=== PATIENT | male | born 1975 ===

== ENCOUNTER 2017-07-05 15:14 | Emergency (ER) | payer SELFPAY ==
[2017-07-05 15:19] VITALS: TEMP 98.7
[2017-07-05] MEDS ORDERED: Lidocaine 2% w Epi 1:100,000 Inj IJ STA (15:52)
[2017-07-05] MEDS ORDERED: Lidocaine 2% w Epi 1:100,000 Inj IJ ONE (16:03)
--- NOTE | 2017-07-05 16:18 | C.PDOC ---
History Of Present Illness 42 yr old male presents to the ER stating while at work he lost his balance, sustaining a laceration to the dorsal aspect of the left forearm by an electric saw. Patient states he can see the muscle but denies any numbness or weakness to the area. Patient denies LOC, chest pain, SOB, nausea, vomiting or back pain. Time Seen by Provider: 07/05/17 15:25 Chief Complaint (Nursing): Abnormal Skin Integrity History Per: Patient History/Exam Limitations: no limitations Onset/Duration Of Symptoms: Sudden Onset ([employer]) Current Symptoms Are (Timing): Still Present Past Medical History Reviewed: Historical Data, Nursing Documentation, Vital Signs Vital Signs: Last Vital Signs Temp 98.7 F 07/05/17 15:17 Pulse 64 07/05/17 17:16 Resp 18 07/05/17 17:16 BP 116/73 07/05/17 17:16 Pulse Ox 100 07/05/17 17:16 Family History: States: No Known Family Hx - Social History Hx Alcohol Use: Yes Hx Substance Use: No - Immunization History Hx Tetanus Toxoid Vaccination: Yes (15 yrs ago) Hx Influenza Vaccination: No Hx Pneumococcal Vaccination: No Review Of Systems Except As Marked, All Systems Reviewed And Found Negative. Cardiovascular: Negative for: Chest Pain Respiratory: Negative for: Shortness of Breath Gastrointestinal: Negative for: Nausea, Vomiting Musculoskeletal: Negative for: Back Pain Skin: Positive for: Other ((+) Laceration to the left forearm) Physical Exam - Physical Exam Appears: Non-toxic, In Acute Distress (Moderate painful distress) Skin: Warm, Dry, No Rash Head: Atraumatic, Normacephalic Eye(s): bilateral: Normal Inspection, PERRL, EOMI Ear(s): Bilateral: Normal Oral Mucosa: Moist Throat: Normal, No Erythema, No Exudate, No Drooling Neck: Normal, Normal ROM, Supple Cardiovascular: Rhythm Regular, No Murmur Respiratory: Normal Breath Sounds, No Rales, No Rhonchi, No Stridor, No Wheezing Extremity: Normal ROM, Capillary Refill (<2 secs), Other ((+) Left Forearm - 9cm long, deep laceration involving all layers. Fasia and muscles are visible. Full ROM from elbow to wrist and all digits.) Pulses: Left Radial: Normal, Right Radial: Normal Neurological/Psych: Oriented x3, Normal Speech, Normal Motor, Normal Sensation, Normal Reflexes ED Course And Treatment O2 Sat by Pulse Oximetry: 99 (RA) Pulse Ox Interpretation: Normal - Other Rad X-Ray - Left Forearm X-Ray: Viewed By Me, Read By Radiologist Interpretation: PROCEDURE: Radiographs of the left elbow. HISTORY: trauma. COMPARISON: None available. FINDINGS: BONES: No acute displaced fracture. JOINTS: No dislocation. SOFT TISSUES: Soft tissue defect involving the lateral aspect of the proximal forearm. No evidence of radiopaque foreign body. JOINT EFFUSION: No significant joint effusion. OTHER FINDINGS: None. IMPRESSION: Soft tissue defect involving the lateral aspect of the proximal forearm. No acute displaced fracture or dislocation identified. If symptoms persist, or if there is continued clinical concern, x-ray follow-up in 7-10 days should be considered. Laceration - Laceration Repair Left Forearm Wound Length (In cm): 9 Anesthesia: Lidocaine 2% Wound Examination: Irrigated With Saline, No FB With Wound Exploration Wound Closure: Suture Suture Technique And Material Used: Nylon (10 sutures. 4-0 Nylon.), Vicryl (4-0) Medical Decision Making Medical Decision Making: PLAN: * X-Ray - Left Forearm * Keflex PO * Tramadol PO * Tetanus IM NOTE: * 3 layers of sutures were done. 1st layer done with 8 simple interrupted sutures 4-0 vicryl. 2nd later, horizontal mattress 5 4-0 vicryl. Top layer, simple interrupted, 10 4-0 Nylon. Disposition Counseled Patient/Family Regarding: Studies Performed, Diagnosis, Need For Followup, Rx Given - Disposition Referrals: [facility] [Outside] Disposition: HOME/ ROUTINE Disposition Time: 16:50 Condition: STABLE Additional Instructions: Follow up with workman's comp or the clinic in 2 days without fail for wound check. Take medication as prescribed. Have sutures removed after 7-10 days. Return to the ER at any time for any new or worsening symptoms. 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 - Scribe Statement The provider has reviewed the documentation as recorded by the Scribe Franci Moreno All medical record entries made by the Luzibprerna were at my direction and personally dictated by me. I have reviewed the chart and agree that the record accurately reflects my personal performance of the history, physical exam, medical decision making, and the department course for this patient. I have also personally directed, reviewed, and agree with the discharge instructions and disposition.
[2017-07-05] MEDS ORDERED: Bacitracin 500 Units/gm Oint Foilpak UD ONE (17:06)
[2017-07-05 17:17] VITALS: BP 116/73; PULSE 64; RESP 18
[2017-07-05 17:24] VITALS: O2SAT 99
== END 2017-07-05 17:16 | disposition home or self-care (01) ==
LOC: C.ER 15:14
DX: S51.812A Laceration without foreign body of left forearm, initial encounter (principal); W29.8XXA Contact with other powered hand tools and household machinery, initial encounter; Y93.89 Activity, other specified; Y92.89 Other specified places as the place of occurrence of the external cause; Y99.0 Civilian activity done for income or pay; Z23 Encounter for immunization